=== PATIENT | male | born 1950 | race Asian ===

== ENCOUNTER 2018-08-12 00:01 | Inpatient (IN) | payer SELFPAY ==
[2018-08-12] MEDS ORDERED: NS 0.9% 1000 ML* 2,100 ML IV ONE (00:35)
[2018-08-12] MEDS ORDERED: Vancomycin(*) 1,000 MG in NS 0.9% 250 ML* 250 ML IVPB ONE (00:36)
[2018-08-12] MEDS ORDERED: Acetaminophen TAB* 325 MG PO ONE (00:36)
[2018-08-12] MEDS ORDERED: Piperacillin/Tazobac ADVAN(*) 3.375 GM in NS 0.9% 100 ML* 100 ML IVPB ONE (00:36)
--- NOTE | 2018-08-12 00:39 | ED ---
HPI Febrile Illness - HPI Summary HPI Summary: This patient is a 68 year old M presenting to [facility] accompanied by family with a chief complaint of fever that began earlier today. The patient rates the pain 3/10 in severity. Symptoms aggravated by nothing. Symptoms alleviated by nothing. Patient reports rash over eye (resolved), dysuria, chills, and urinary frequency. - History of Current Complaint Chief Complaint: EDFever Time Seen by Provider: 08/12/18 00:28 Hx Obtained From: Patient, Family/Field Handyman Onset/Duration: Started Hours Ago, Atraumatic, Still Present Timing: Constant Initial Severity: Mild Current Severity: Mild Pain Intensity: 3 Pain Scale Used: 0-10 Numeric Aggravating Factors: Nothing Alleviating Factors: Nothing Associated Signs and Symptoms: Other: - Positive rash over eye (resolved), dysuria, chills, and urinary frequency - Allergy/Home Medications Allergies/Adverse Reactions: Allergies Allergy/AdvReac Type Severity Reaction Status Date / Time No Known Allergies Allergy Verified 08/12/18 00:12 PMH/Surg Hx/FS Hx/Imm Hx Previously Healthy: No Endocrine/Hematology History: Reports: Hx Diabetes History: Reports: Other Problems/Disorders - Positive prostitis Infectious Disease History: No Infectious Disease History: Denies: Traveled Outside the [place] in Last 30 Days - Family History Known Family History: Positive: Other - Unknown because patient does not speak Cymro - Social History Occupation: Retired Lives: With Family Alcohol Use: Unknown Hx Substance Use: No Substance Use Type: Reports: None Hx Tobacco Use: No Smoking Status (MU): Unknown if Ever Smoked Review of Systems Positive: Fever, Chills Positive: dysuria, frequency Positive: Rash - Resolved All Other Systems Reviewed And Are Negative: Yes Physical Exam - Summary Physical Exam Summary: VITAL SIGNS: Reviewed. GENERAL: Patient is a well-developed and nourished male who is lying comfortable in the stretcher. Patient is not in any acute respiratory distress. Lethargic HEAD AND FACE: No signs of trauma. No ecchymosis, hematomas or skull depressions. No sinus tenderness. EYES: PERRLA, EOMI x 2, No injected conjunctiva, no nystagmus. EARS: Hearing grossly intact. Ear canals and tympanic membranes are within normal limits. MOUTH: Oropharynx within normal limits. NECK: Supple, trachea is midline, no adenopathy, no JVD, no carotid bruit, no c- spine tenderness, neck with full ROM. CHEST: Symmetric, no tenderness at palpation LUNGS: Clear to auscultation bilaterally. No wheezing or crackles. Decreased breath sounds bilaterally CVS: Regular rhythm, S1 and S2 present, no murmurs or gallops appreciated. Tachycardia ABDOMEN: Soft, non-tender. No signs of distention. No rebound no guarding, and no masses palpated. Bowel sounds are normal. GENITAL EXAM: uncircumcised EXTREMITIES: FROM in all major joints, no edema, no cyanosis or clubbing. NEURO: Alert and oriented x 3. No acute neurological deficits. Speech is normal and follows commands. SKIN: Dry and warm Triage Information Reviewed: Yes Vital Signs On Initial Exam: Initial Vitals Temp Pulse Resp BP Pulse Ox 101.1 F 131 15 94/50 95 08/12/18 00:08 08/12/18 00:08 08/12/18 00:08 08/12/18 00:08 08/12/18 00:08 Vital Signs Reviewed: Yes Procedures - Central Line Right Internal Jugular Central Line Lumen: triple Central Line Procedure: betadine prep - Chlorhexadine, sterile drapes applied, sterile dressing applied Central Line Position: internal jugular (R) Anesthesia: Lidocaine - 2% with epi Complications: none Central Line Post Position: sutured Diagnostics - Vital Signs Vital Signs Temp Pulse Resp BP Pulse Ox 08/12/18 00:08 101.1 F 131 15 94/50 95 - Laboratory Result Diagrams: 08/12/18 00:47 08/12/18 05:28 Lab Statement: Any lab studies that have been ordered have been reviewed, and results considered in the medical decision making process. - Radiology Chest XR Radiology Interpretation Completed By: ED Physician Summary of Radiographic Findings: Chest XR reveals, per ED physician, no acute process. Chest X-Ray Radiology Interpretation Completed By: ED Physician Summary of Radiographic Findings: Chest XR reveals, per ED physician, no pneumothorax, tip of central line is in the distal SVC - EKG 0157 Cardiac Rate: NL EKG Rhythm: Sinus Rhythm - [address] Segment: Non-Specific Summary of EKG Findings: An EKG taken at 0157 reveals normal sinus rhythm at 109 BPM nonspecific T wave changes in inferior leads. Re-Evaluation - Re-Evaluation First Eval Re-Evaluation Time: 02:14 Change: Unchanged Comment: Family member states the patient does not have any abdominal pain or back pain, so they are reluctant to have him get a CT. Course/Dx - Course Course Of Treatment: This patient is a 68 year old M presenting to [facility] accompanied by family with a chief complaint of fever that began earlier today. Physical Exam Findings: Lethargic, tachycardia, decreased breath sounds bilaterally, and uncircumcised. An EKG taken at 0157 reveals normal sinus rhythm at 109 BPM nonspecific T wave changes in inferior leads. Chest XR reveals , per ED physician, no acute process. Bloodwork and UA obtained. In the ED course the patient was given fluids, acetaminophen, Vancomycin, and Zosyn. Consult with Dr. Barfield (hospitalist) at 0219. She agrees to admit pt for further evaluation. The patient is agreeable with this plan. - Diagnoses Provider Diagnoses: UTI (urinary tract infection), Sepsis - Critical Care Time Critical Care Time: 30-74 min - 50 minutes Discharge - Sign-Out/Discharge Documenting (check all that apply): Patient Departure - Admit to [facility] - Discharge Plan Condition: Stable Disposition: ADMITTED TO [facility] - Billing Disposition and Condition Condition: STABLE Disposition: Admitted to [facility] - Attestation Statements Document Initiated by Tyleribsuzette: Yes Documenting Scribe: Jackeline Carcamo Provider For Whom Pradeep is Documenting (Include Credential): Dr. Leatha Rosas MD Scribe Attestation: IJackeline scribed for Dr. Leatha Rosas MD on 08/12/18 at 0611. Scribe Documentation Reviewed: Yes Provider Attestation: The documentation as recorded by the Jackeline guzman accurately reflects the service I personally performed and the decisions made by me, Dr. Leatha Rosas MD Status of Scribe Document: Viewed
[2018-08-12 01:08] LABS: Hematocrit 45 % (42-52); Hemoglobin 15.4 g/dl (14.0-18.0); INR 1.18 (0.77-1.02); Mean Corpuscular HGB Conc 34 g/dl (31-36); Mean Corpuscular Hemoglobin 32 pg (27-31); Mean Corpuscular Volume 95 fL (80-94); Mean Platelet Volume 8.1 fL (7.4-10.4); Platelet Count 118 10^3/ul (150-450); Red Blood Count 4.78 10^6/ul (4.00-5.40); Red Cell Distribution Width 12 % (10.5-15); White Blood Count 1.4 10^3/ul (3.5-10.8)
[2018-08-12 01:09] LABS: ABS Basophils 0 10^3/ul (0-0.2); ABS Eosinophils 0 10^3/ul (0-0.6); ABS Lymphocytes 0.7 10^3/ul (1.0-4.8); ABS Monocytes 0 10^3/ul (0-0.8); ABS Neutrophils 0.8 10^3/ul (1.5-7.7); ABS Nucleated RBC 0 10^3/ul; Nucleated Red Blood Cells % 0
[2018-08-12 01:16] LABS: EGFR Non-African American 43.2 (>60)
[2018-08-12 01:22] LABS: Eosinophil % 0.2 %; Lymphocyte % 45.2 %
[2018-08-12] MEDS ORDERED: NS 0.9% 1000 ML* 1,000 ML IV ONE (01:35)
[2018-08-12 01:38] LABS: Urine Appearance Cloudy; Urine Blood 2+ (Negative); Urine Color Yellow; Urine Ketones Negative (Negative); Urine Protein 2+(100 mg/dL) (Negative); Urine Red Blood Cell 2+(6-10/hpf) (Absent); Urine Specific Gravity 1.016 (1.010-1.030); Urine Urobilinogen Negative (Negative); Urine White Blood Cell 3+(>20/hpf) (Absent)
[2018-08-12] MEDS ORDERED: Dextrose 50% Syringe 50 ML* 25 GM/50 ML SYRINGE IV PUSH PRN (03:14)
[2018-08-12] MEDS ORDERED: Lidocaine 2% EPI 1:200000 MPF*10-20 ML VIAL ONE (03:32)
[2018-08-12] MEDS ORDERED: Norepinephrine 16MCG/ML IVPRE* 4,000 MCG/250 ML BAG IV SCH (04:00)
[2018-08-12] MEDS: Cefepime 1 GM in Dextrose(*) 1 GM/50 ML BAG IV SCH ×2 (04:21→16:24)
[2018-08-12] MEDS ORDERED: Norepinephrine VIAL* 4 MG in NS 0.9% 250 ML* 246 ML IV SCH (05:00)
[2018-08-12] MEDS: Heparin VIAL(*) 5000 UNITS/ML VIAL (FIVE THOUSAND) SUBCUT SCH ×3 (05:13→21:51)
[2018-08-12 05:56] LABS: EGFR Non-African American 53.5 (>60)
[2018-08-12] MEDS: Insulin LISPRO* 1 UNITS UNIT SUBCUT SCH ×5 (06:07→20:44)
--- NOTE | 2018-08-12 06:24 | HP ---
HISTORY AND PHYSICAL: DATE OF ADMISSION: 08/12/18 TIME OF EVALUATION: 3.00 a.m. PRIMARY CARE PROVIDER: None. CHIEF COMPLAINT: "He was out of it" as per khlwminc-zs-gwm. HISTORY OF PRESENT ILLNESS: Mr. Brice is a 68-year-old male with a past medical history of diabetes, who is visiting family from [place]. He is lethargic at the time of my evaluation and most of the history is obtained from his vhzioqqh-dg-yzb, who is at bedside and speaks Swedish. The wgcpuhaw-qo-ivd states that 3 days ago, the patient developed a rash around his right eye. She describes it as an elevated red rash that disappeared by itself. Around the same time, the patient started to complain of weakness, fatigue, feeling poorly, and had some urinary frequency. His was a physician in [place] and gave him amoxicillin yesterday, but he continued to have fever and feel poorly. His hhnmqryx-lb-eml, who is a nurse, states that yesterday the patient had a fever of 107 and he was very confused and tachypneic , reason why he was brought to the emergency room. He denies chest pain, palpitations, cough, abdominal pain, or any other complaints. As per aewmythc-za-jzp, he is feeling improved now and she says that he looks better, but is not back at his baseline. PAST MEDICAL HISTORY: Type 2 diabetes. He denies prior surgeries, history of nephrolithiasis, or prior episodes of urinary tract infection MEDICATIONS: Medication list is not available at this time. His daughter-in- law states that he takes metformin, glimepiride, and a third medication for his diabetes, but she does not have current dosages at this point. FAMILY HISTORY: Reviewed and noncontributory. SOCIAL HISTORY: There is no history of tobacco, alcohol, or drug use. Surrogate decision maker is his son, Riaz Brice. Phone number is [phone]. REVIEW OF SYSTEMS: I am unable to obtain from the patient at this time, but all the pertinent negative and positive findings that I could obtain through his gmyhnnzi-qi-yil are in the HPI. PHYSICAL EXAMINATION GENERAL: The patient is an elderly gentleman, lying in the ED stretcher, in no acute distress. VITAL SIGNS: Temperature 101.1, heart rate is 107, respiratory rate is 27, oxygen saturation is 95% on room air, blood pressure is 91/54. HEENT: Pupils are equal. Moist mucous membranes. CHEST: Breath sounds bilaterally with no added sounds. CVS: Normal S1, S2. Regular rate and rhythm. ABDOMEN: Soft, nontender, nondistended. Bowel sounds are present. EXTREMITIES: No edema. NEURO: The patient is lethargic, but arousable to touch. As per his daughter- in- law, his confusion has improved now and he is oriented x3. He follows commands and is able to move all 4 extremities. DIAGNOSTIC STUDIES/LAB DATA: The patient had a CBC that showed a WBC of 1.4 with a hemoglobin of 15.4, hematocrit of 45, platelets of 118 with 53% neutrophils, and ANC of 0.8. INR is 1.1. Chemistry showed a sodium of 137, potassium of 3.6, chloride of 103, bicarb 22, anion gap of 12, BUN of 16, creatinine of 1.6, glucose of 152, lactic acid of 4, calcium of 9.4. Total bilirubin is 1.7, AST is 22, ALT is 14, alk phos is 83. CPK is 132. Troponin is 0.01. CRP is 104.7. Urinalysis showed 2+ protein, 2+ blood, 3+ LE, 3+ wbc's , 2+ rbc's, 1+ bacteria, hyaline casts are present. Influenza was negative. Chest x-ray to my read shows no acute pulmonary disease. EKG done 08/12/18 at 1:57 a.m. shows sinus tachycardia at 109 beats per minute with no ST-T changes. No prior EKG to compare. IMPRESSION AND PLAN: Mr. Brice is a 68-year-old male with a past medical history of diabetes, visiting from [place], who presents to the emergency room with 2 days of dysuria, fatigue, fevers, found to have severe sepsis secondary to urinary tract infection. 1. Severe sepsis. The patient meets sepsis criteria with fever, tachycardia, tachypnea, leukopenia. He does have acute renal failure and encephalopathy and a lactic acid of 4. He also meets qSOFA criteria with respiratory rate greater than 22, altered mentation, and a systolic blood pressure less than 100. Source is the urinary tract infection. The patient would be admitted to the intensive care unit. We are going to continue aggressive fluid resuscitation and monitor his lactic acid. 2. Urinary tract infection. The patient will be started on cefepime to cover gram negatives. The blood cultures were sent and after discussing with his daughter-in- law, they are now agreeable with a CT of the abdomen and pelvis to rule out any urological obstruction that may be playing a role on his septic picture. 3. Leukopenia/thrombocytopenia. This appears to be acute and related to sepsis. As far as his bujqcair-ck-kvt knows, the patient has no history of leukopenia or thrombocytopenia. He will be placed on contact precautions. 4. Acute kidney injury, probably secondary to acute tubular necrosis in the setting of severe sepsis. The patent will receive aggressive IV hydration. He is going to have the CT without contrast to rule out obstruction and we will continue to monitor his renal function. 5. Type 2 diabetes. The patient's mcywylmr-ay-bjd does not remember all the medications he is taking. At this point, he is going to have fingersticks q.4 hours with lispro sliding scale and we will reconcile his medication list when his son gets here. His metformin use may also be contributing to his lactic acid elevation. 6. DVT prophylaxis. The patient has a score of 2 on the DVT Prophylaxis Risk Assessment Guide and he will be on subcutaneous heparin. 7. Code status is full. TIME SPENT: Approximately 55 minutes of critical care time was spent to complete this admission. [id number]/[facility] #: [id number] FARRUKH
[2018-08-12 07:08] LABS: ABS Basophils 0 10^3/ul (0-0.2); ABS Eosinophils 0 10^3/ul (0-0.6); ABS Lymphocytes 0.3 10^3/ul (1.0-4.8); ABS Monocytes 0.1 10^3/ul (0-0.8); ABS Neutrophils 5.6 10^3/ul (1.5-7.7); ABS Nucleated RBC 0 10^3/ul; Eosinophil % 0.1 %; Hematocrit 38 % (42-52); Lymphocyte % 4.3 %; Mean Corpuscular HGB Conc 34 g/dl (31-36); Mean Corpuscular Hemoglobin 33 pg (27-31); Mean Corpuscular Volume 95 fL (80-94); Mean Platelet Volume 8.3 fL (7.4-10.4); Nucleated Red Blood Cells % 0.1; Platelet Count 93 10^3/ul (150-450); Red Blood Count 3.96 10^6/ul (4.00-5.40); Red Cell Distribution Width 13 % (10.5-15); White Blood Count 5.9 10^3/ul (3.5-10.8)
[2018-08-12] MEDS: Norepinephrine VIAL* 4 MG in NS 0.9% 250 ML* 246 ML IV SCH ×2 (09:24→21:40)
[2018-08-12] MEDS: KCL 20 MEQ/100 ML IVPREMIX* 20 MEQ/100 ML BAG IV SCH ×2 (09:34→11:38)
[2018-08-12] MEDS: Docusate CAP* 100 MG PO SCH ×2 (10:10→20:51)
--- NOTE | 2018-08-12 12:16 | PN ---
Progress Note - Progress Note Date of Service: 08/12/18 - Progress note Note: Pt seen and examined at bedside. Plan of care discussed with bedside RN Pt admitted for sepsis sec to UTI. Pt is more alert this am. Remains afebrile o/n. Still requiring Levophed this am Active Medications Generic Name Dose Route Start Last Admin Trade Name Freq PRN Reason Stop Dose Admin Acetaminophen 650 mg 08/12/18 03:12 Tylenol Tab* PO Q6H PRN pain/fever Dextrose 12.5 gm 08/12/18 03:14 D50w Syringe 50 Ml* IV PUSH .FOR FS < 60 - SS PRN FS < 60 Docusate Sodium 100 mg 08/12/18 09:00 08/12/18 10:10 Colace Cap* PO Not Given BID MIMA Heparin Sodium (Porcine) 5,000 units 08/12/18 06:00 08/12/18 05:13 Heparin Vial(*) SUBCUT 5,000 units Q8HR MIMA Administration Cefepime HCl 1 gm in 50 mls @ 100 mls/hr 08/12/18 04:00 08/12/18 04:21 Maxipime 1 Gm In Dextrose Duplex (*) IV 100 mls/hr Q12H MIMA Administration Lactated Ringer's 1,000 mls @ 200 mls/hr 08/12/18 04:00 08/12/18 09:34 Lactated Ringers 1000 Ml Bag* IV 200 mls/hr PER RATE MIMA Administration Potassium Chloride 20 meq in 100 mls @ 50 mls/hr 08/12/18 09:00 08/12/18 11: 38 Potassium Chloride 20 Meq/100 Ml Ivpremix* IV 08/12/18 12:59 50 mls/hr Q2H MIMA Administration Norepinephrine Bitartrate 4 mg 250 mls @ 18.75 mls/hr 08/12/18 09:00 09:24 / Sodium Chloride IV 48.8 mls/hr Q13H MIMA Administration Protocol 5 MCG/MIN Insulin Human Lispro 0 units 08/12/18 06:00 08/12/18 10:32 Humalog* SUBCUT Not Given Q4HR MIMA Protocol Vital Signs Temp Pulse Resp BP Pulse Ox 97.8 F 70 15 116/69 97 08/12/18 07:00 08/12/18 11:30 08/12/18 11:30 08/12/18 11:30 08/12/18 11:30 O/E: Pt in NAD, drowsy but arousable HEENT: PERRLA, no JVD Lungs: clear to auscultation b/l CVS:S1, S2+, regular Abd: Soft, BS+ Ext: Normal ROM Neuro: Drowsy, wakes up to verbal stimuli, no focal deficits Skin: No rash Laboratory Results - last 24 hr 08/12/18 08/12/18 08/12/18 00:47 00:47 00:47 WBC 1.4 L RBC 4.78 Hgb 15.4 Hct 45 MCV 95 H MCH 32 H MCHC 34 RDW 12 Plt Count 118 L MPV 8.1 Neut % (Auto) 53.8 Lymph % (Auto) 45.2 Knott % (Auto) 0.5 Eos % (Auto) 0.2 Baso % (Auto) 0.3 Absolute Neuts (auto) 0.8 L* Absolute Lymphs (auto) 0.7 L Absolute Monos (auto) 0 Absolute Eos (auto) 0 Absolute Basos (auto) 0 Absolute Nucleated RBC 0 Nucleated RBC % 0 INR (Anticoag Therapy) 1.18 H APTT 28.9 Sodium 137 Potassium 3.6 Chloride 103 Carbon Dioxide 22 Anion Gap 12 H BUN 16 Creatinine 1.60 H Est GFR ( Amer) 52.3 Est GFR (Non-Af Amer) 43.2 BUN/Creatinine Ratio 10.0 Glucose 152 H POC Glucose (mg/dL) Lactic Acid Calcium 9.4 Magnesium Total Bilirubin 1.70 H AST 22 ALT 14 Alkaline Phosphatase 83 Total Creatine Kinase 132 Troponin I 0.01 C-Reactive Protein 104.76 H Total Protein 7.4 Albumin 4.1 Globulin 3.3 Albumin/Globulin Ratio 1.2 Urine Color Urine Appearance Urine pH Ur Specific [place] Urine Protein Urine Ketones Urine Blood Urine Nitrate Urine Bilirubin Urine Urobilinogen Ur Leukocyte Esterase Urine WBC (Auto) Urine RBC (Auto) Ur Squamous Epith Cells Urine Bacteria Hyaline Casts Urine Glucose Influenza A (Rapid) Influenza B (Rapid) 08/12/18 08/12/18 08/12/18 00:47 01:20 01:48 WBC RBC Hgb Hct MCV MCH MCHC RDW Plt Count MPV Neut % (Auto) Lymph % (Auto) Knott % (Auto) Eos % (Auto) Baso % (Auto) Absolute Neuts (auto) Absolute Lymphs (auto) Absolute Monos (auto) Absolute Eos (auto) Absolute Basos (auto) Absolute Nucleated RBC Nucleated RBC % INR (Anticoag Therapy) APTT Sodium Potassium Chloride Carbon Dioxide Anion Gap BUN Creatinine Est GFR ( Amer) Est GFR (Non-Af Amer) BUN/Creatinine Ratio Glucose POC Glucose (mg/dL) Lactic Acid 4.0 H* Calcium Magnesium Total Bilirubin AST ALT Alkaline Phosphatase Total Creatine Kinase Troponin I C-Reactive Protein Total Protein Albumin Globulin Albumin/Globulin Ratio Urine Color Yellow Urine Appearance Cloudy Urine pH 5.0 Ur Specific [place] 1.016 Urine Protein 2+(100 mg/dl) A Urine Ketones Negative Urine Blood 2+ A Urine Nitrate Negative Urine Bilirubin Negative Urine Urobilinogen Negative Ur Leukocyte Esterase 3+ A Urine WBC (Auto) 3+(>20/hpf) A Urine RBC (Auto) 2+(6-10/hpf) A Ur Squamous Epith Cells Present A Urine Bacteria 1+ A Hyaline Casts Present A Urine Glucose Negative Influenza A (Rapid) Negative Influenza B (Rapid) Negative 08/12/18 08/12/18 08/12/18 05:28 05:28 05:28 WBC 5.9 RBC 3.96 L Hgb 13.0 L Hct 38 L MCV 95 H MCH 33 H MCHC 34 RDW 13 Plt Count 93 L MPV 8.3 Neut % (Auto) 93.8 Lymph % (Auto) 4.3 Knott % (Auto) 1.7 Eos % (Auto) 0.1 Baso % (Auto) 0.1 Absolute Neuts (auto) 5.6 Absolute Lymphs (auto) 0.3 L Absolute Monos (auto) 0.1 Absolute Eos (auto) 0 Absolute Basos (auto) 0 Absolute Nucleated RBC 0 Nucleated RBC % 0.1 INR (Anticoag Therapy) APTT Sodium 140 Potassium 3.0 L Chloride 114 H Carbon Dioxide 18 L Anion Gap 8 BUN 18 Creatinine 1.33 H Est GFR ( Amer) 64.7 Est GFR (Non-Af Amer) 53.5 BUN/Creatinine Ratio 13.5 Glucose 117 H POC Glucose (mg/dL) Lactic Acid 1.9 Calcium 7.5 L Magnesium 1.7 L Total Bilirubin 1.00 AST 28 ALT 16 Alkaline Phosphatase 56 Total Creatine Kinase Troponin I C-Reactive Protein Total Protein 5.2 L Albumin 2.9 L Globulin 2.3 Albumin/Globulin Ratio 1.3 Urine Color Urine Appearance Urine pH Ur Specific [place] Urine Protein Urine Ketones Urine Blood Urine Nitrate Urine Bilirubin Urine Urobilinogen Ur Leukocyte Esterase Urine WBC (Auto) Urine RBC (Auto) Ur Squamous Epith Cells Urine Bacteria Hyaline Casts Urine Glucose Influenza A (Rapid) Influenza B (Rapid) 08/12/18 10:10 WBC RBC Hgb Hct MCV MCH MCHC RDW Plt Count MPV Neut % (Auto) Lymph % (Auto) Knott % (Auto) Eos % (Auto) Baso % (Auto) Absolute Neuts (auto) Absolute Lymphs (auto) Absolute Monos (auto) Absolute Eos (auto) Absolute Basos (auto) Absolute Nucleated RBC Nucleated RBC % INR (Anticoag Therapy) APTT Sodium Potassium Chloride Carbon Dioxide Anion Gap BUN Creatinine Est GFR ( Amer) Est GFR (Non-Af Amer) BUN/Creatinine Ratio Glucose POC Glucose (mg/dL) 127 H Lactic Acid Calcium Magnesium Total Bilirubin AST ALT Alkaline Phosphatase Total Creatine Kinase Troponin I C-Reactive Protein Total Protein Albumin Globulin Albumin/Globulin Ratio Urine Color Urine Appearance Urine pH Ur Specific [place] Urine Protein Urine Ketones Urine Blood Urine Nitrate Urine Bilirubin Urine Urobilinogen Ur Leukocyte Esterase Urine WBC (Auto) Urine RBC (Auto) Ur Squamous Epith Cells Urine Bacteria Hyaline Casts Urine Glucose Influenza A (Rapid) Influenza B (Rapid) Imaging: CT abdomen with no obvious abnormalities, no hydronephrosis. Evidence of stool in intestine CXR: Basal atelectasis A/P: 68 y o georgian m with h/o DM, a/w fever, AMS being treated for sepsis sec to UTI 1. Septic shock sec to UTI 2.AMS sec to septic encephalopathy 3. DM- poorly controlled sec to sepsis 4. Electrolyte abnormalities with hypokalemia, corrected 5.Renal failure sec to sepsis, hypotension 6. Gram negative bacteremia 1. Neuro: Pt more alert today. AMS sec to sepsis. Aspiration precautions 2. CVS: Septic shock sec to UTI and bacteremia with gram negatives, improving. Titrate LEvophed as tolerated. c/w IVF @ 200cc/hr, not tachycardic 3. ID: Urosepsis, improving. Lactate normalized. On Cefepime. Bl cx positive for gram negative rods, identification and susceptibilities pending. Urine cx pending 4. Renal: UO good, will d/c obando and place condom catheter. Hypokalemia, hypomagnesemia- Repleted. Uncomplicated UTI 5. GI: Started carbohydrate diet. Able to tolerate 6. Endo: DM- Bl sugars slightly elevated, being covered by sliding scale insulin. 7. Haem: Leucopenia on admission sec to sepsis, improving. 8. Muculoskletal: NO issues 9. Psychosocial: Family at bedside. Pts son, lakgnwmy-wn-zzg, pts were updated of plan of care. Pt visiting from [place], doesnot have insurance. personal care worker consulted DVT px: Heparin Sq Code status: Full code Critical care time 30 min
[2018-08-12] MEDS ORDERED: Magnesium Oxide TAB* 400 MG PO ONE (12:35)
[2018-08-12] MEDS: Acetaminophen TAB* 325 MG PO PRN (16:34)
[2018-08-13] MEDS: Cefepime 1 GM in Dextrose(*) 1 GM/50 ML BAG IV SCH ×2 (03:49→17:07)
[2018-08-13 05:32] LABS: Hematocrit 37 % (42-52); Hemoglobin 12.6 g/dl (14.0-18.0); Mean Corpuscular HGB Conc 34 g/dl (31-36); Mean Corpuscular Hemoglobin 32 pg (27-31); Mean Corpuscular Volume 95 fL (80-94); Platelet Count 69 10^3/ul (150-450); Red Blood Count 3.89 10^6/ul (4.00-5.40); Red Cell Distribution Width 13 % (10.5-15); White Blood Count 13.2 10^3/ul (3.5-10.8)
[2018-08-13 05:44] LABS: EGFR Non-African American 74.3 (>60)
[2018-08-13] MEDS: Heparin VIAL(*) 5000 UNITS/ML VIAL (FIVE THOUSAND) SUBCUT SCH (06:40)
[2018-08-13] MEDS: Insulin LISPRO* 1 UNITS UNIT SUBCUT SCH ×4 (07:47→21:27)
[2018-08-13 08:18] LABS: ABS Basophils 0 10^3/ul (0-0.2); ABS Eosinophils 0 10^3/ul (0-0.6); ABS Lymphocytes 0.8 10^3/ul (1.0-4.8); ABS Monocytes 0.6 10^3/ul (0-0.8); ABS Neutrophils 11.7 10^3/ul (1.5-7.7); ABS Nucleated RBC 0 10^3/ul; Eosinophil % 0.1 %; Lymphocyte % 6.3 %; Nucleated Red Blood Cells % 0.1
[2018-08-13 08:21] LABS: Monocytes % 2 %
[2018-08-13 08:26] LABS: ABS Neutrophils 13.2 10^3/ul (1.5-7.7)
[2018-08-13] MEDS: Docusate CAP* 100 MG PO SCH ×3 (08:40→21:30)
--- NOTE | 2018-08-13 12:34 | PN ---
Progress Note - Progress Note Date of Service: 08/13/18 - Progress note/Transfer note Note: Pt seen and examined multiple times throughout this am. Pt is more alert. he is german speaking and his son at bedside translates. No acute events overnight. Has required Levophed at 4mcg, has been off since 10am. Active Medications Generic Name Dose Route Start Last Admin Trade Name Freq PRN Reason Stop Dose Admin Acetaminophen 650 mg 08/12/18 03:12 08/12/18 16:34 Tylenol Tab* PO 650 mg Q6H PRN Administration pain/fever Dextrose 12.5 gm 08/12/18 03:14 D50w Syringe 50 Ml* IV PUSH .FOR FS < 60 - SS PRN FS < 60 Docusate Sodium 100 mg 08/12/18 09:00 08/13/18 08:40 Colace Cap* PO Not Given BID MIMA Cefepime HCl 1 gm in 50 mls @ 100 mls/hr 08/12/18 04:00 08/13/18 03:49 Maxipime 1 Gm In Dextrose Duplex (*) IV 100 mls/hr Q12H MIMA Administration Norepinephrine Bitartrate 4 mg 250 mls @ 18.75 mls/hr 08/12/18 09:00 21:40 / Sodium Chloride IV 11.3 mls/hr Q13H MIMA Administration Protocol 5 MCG/MIN Lactated Ringer's 1,000 mls @ 75 mls/hr 08/12/18 13:57 08/13/18 03:49 Lactated Ringers 1000 Ml Bag* IV 75 mls/hr PER RATE MIMA Administration Insulin Human Lispro 0 units 08/12/18 13:30 08/13/18 07:47 Humalog* SUBCUT Not Given FS ACHS ICU MIMA Protocol Vital Signs Temp Pulse Resp BP Pulse Ox 98.2 F 98 14 103/58 96 08/13/18 11:27 08/13/18 10:15 08/13/18 10:15 08/13/18 10:15 08/13/18 10:15 O/E: Pt in NAD HEENT: PERRLA, no JVD Lungs: Good a/e b/l CVS: S1, S2+, regular Abd: Soft, BS+ Ext; No edema Neuro: Alert, awake, no focal deficits Skin: No rash Laboratory Results - last 24 hr 08/12/18 08/12/18 08/12/18 00:47 12:10 18:30 WBC RBC Hgb Hct MCV MCH MCHC RDW Plt Count MPV Neut % (Auto) Lymph % (Auto) Pepin % (Auto) Eos % (Auto) Baso % (Auto) Absolute Neuts (auto) Absolute Lymphs (auto) Absolute Monos (auto) Absolute Eos (auto) Absolute Basos (auto) Absolute Nucleated RBC Immature Gran % Neutrophils % Band Neutrophils % Lymphocytes % Monocytes % Metamyelocytes % Myelocytes % Nucleated RBC % Abs Neuts (Manual) Abs Lymphs (Manual) Abs Monocytes (Manual) Normal RBC Morphology Hem Pathologist Commnt Sodium Potassium Chloride Carbon Dioxide Anion Gap BUN Creatinine Est GFR ( Amer) Est GFR (Non-Af Amer) BUN/Creatinine Ratio Glucose POC Glucose (mg/dL) 185 H 174 H Calcium Total Bilirubin AST ALT Alkaline Phosphatase Total Protein Albumin Globulin Albumin/Globulin Ratio 08/12/18 08/13/18 08/13/18 20:34 05:15 05:15 WBC 13.2 H RBC 3.89 L Hgb 12.6 L Hct 37 L MCV 95 H MCH 32 H MCHC 34 RDW 13 Plt Count 69 L MPV 8.0 Neut % (Auto) 88.7 Lymph % (Auto) 6.3 Pepin % (Auto) 4.8 Eos % (Auto) 0.1 Baso % (Auto) 0.1 Absolute Neuts (auto) 11.7 H Absolute Lymphs (auto) 0.8 L Absolute Monos (auto) 0.6 Absolute Eos (auto) 0 Absolute Basos (auto) 0 Absolute Nucleated RBC 0 Immature Gran % 19 H Neutrophils % 73 Band Neutrophils % 16 H Lymphocytes % 6 Monocytes % 2 Metamyelocytes % 2 Myelocytes % 1 Nucleated RBC % 0.1 Abs Neuts (Manual) 13.2 H Abs Lymphs (Manual) 0.8 L Abs Monocytes (Manual) 0.3 Normal RBC Morphology Normal Hem Pathologist Commnt Sodium 139 Potassium 3.5 Chloride 111 Carbon Dioxide 20 L Anion Gap 8 BUN 12 Creatinine 1.00 Est GFR ( Amer) 89.9 Est GFR (Non-Af Amer) 74.3 BUN/Creatinine Ratio 12.0 Glucose 105 H POC Glucose (mg/dL) 194 H Calcium 7.7 L Total Bilirubin 0.80 AST 29 ALT 18 Alkaline Phosphatase 48 Total Protein 5.2 L Albumin 2.7 L Globulin 2.5 Albumin/Globulin Ratio 1.1 08/13/18 07:40 WBC RBC Hgb Hct MCV MCH MCHC RDW Plt Count MPV Neut % (Auto) Lymph % (Auto) Pepin % (Auto) Eos % (Auto) Baso % (Auto) Absolute Neuts (auto) Absolute Lymphs (auto) Absolute Monos (auto) Absolute Eos (auto) Absolute Basos (auto) Absolute Nucleated RBC Immature Gran % Neutrophils % Band Neutrophils % Lymphocytes % Monocytes % Metamyelocytes % Myelocytes % Nucleated RBC % Abs Neuts (Manual) Abs Lymphs (Manual) Abs Monocytes (Manual) Normal RBC Morphology Hem Pathologist Commnt Sodium Potassium Chloride Carbon Dioxide Anion Gap BUN Creatinine Est GFR ( Amer) Est GFR (Non-Af Amer) BUN/Creatinine Ratio Glucose POC Glucose (mg/dL) 105 H Calcium Total Bilirubin AST ALT Alkaline Phosphatase Total Protein Albumin Globulin Albumin/Globulin Ratio Imaging: CT abdomen with no obvious abnormalities, no hydronephrosis. Evidence of stool in intestine CXR: Basal atelectasis A/P: 68 y o german m with h/o DM, a/w fever, AMS being treated for sepsis sec to UTI and E.Coli bactiremia Septic shock sec to E.Coli bacteremia and UTI, resolved Pt has been off Levophed since this morning Susceptibilities pending, c/w Cefepime Renal output good, obando was d/elder Able to tolerate feeds H/o DM- c/w sliding scale insulin coverage Leucopenia on admission, leucocytosis now Thrombocytopenia- Likely sec to sepsis, no active bleeding, will d/c Heparin sq Will transfer to regular medical floor Pt`s son and [id number] had many questions that were addressed Pt visiting from [place], doesnot have insurance. freezing room worker consulted DVT px: SCD`s Pt to ambulate as tolerated D/w Dr Quevedo who would be taking over patient`s care Code status: Full code
[2018-08-13] MEDS: Norepinephrine VIAL* 4 MG in NS 0.9% 250 ML* 246 ML IV SCH (12:59)
[2018-08-13] MEDS: Acetaminophen TAB* 325 MG PO PRN (18:13)
[2018-08-14] MEDS: Cefepime 1 GM in Dextrose(*) 1 GM/50 ML BAG IV SCH ×2 (04:58→17:47)
[2018-08-14 10:23] LABS: ABS Basophils 0 10^3/ul (0-0.2); ABS Eosinophils 0 10^3/ul (0-0.6); ABS Lymphocytes 0.8 10^3/ul (1.0-4.8); ABS Monocytes 0.4 10^3/ul (0-0.8); ABS Neutrophils 8.3 10^3/ul (1.5-7.7); ABS Nucleated RBC 0 10^3/ul; Eosinophil % 0.4 %; Hematocrit 37 % (42-52); Lymphocyte % 8.7 %; Mean Corpuscular HGB Conc 35 g/dl (31-36); Mean Corpuscular Hemoglobin 33 pg (27-31); Mean Corpuscular Volume 94 fL (80-94); Mean Platelet Volume 8.9 fL (7.4-10.4); Nucleated Red Blood Cells % 0; Platelet Count 73 10^3/ul (150-450); Red Blood Count 3.98 10^6/ul (4.00-5.40); Red Cell Distribution Width 13 % (10.5-15); White Blood Count 9.6 10^3/ul (3.5-10.8)
[2018-08-14] MEDS: Insulin LISPRO* 1 UNITS UNIT SUBCUT SCH ×4 (10:27→20:48)
[2018-08-14] MEDS: Docusate CAP* 100 MG PO SCH ×2 (10:28→20:48)
[2018-08-14 10:34] LABS: EGFR Non-African American 75.2 (>60)
--- NOTE | 2018-08-14 13:50 | PN ---
Subjective Date of Service: 08/14/18 Interval History: Patient does not speak any Cymro - son at bedside to interpret. Pt denies any pain today. He reports he feels better today. Denies fever/chills. Reports tolerating PO Objective Active Medications: Acetaminophen (Tylenol Tab*) 650 mg PO Q6H PRN PRN Reason: pain/fever Last Admin: 08/13/18 18:13 Dose: 650 mg Dextrose (D50w Syringe 50 Ml*) 12.5 gm IV PUSH .FOR FS < 60 - SS PRN PRN Reason: FS < 60 Docusate Sodium (Colace Cap*) 100 mg PO BID [facility] Last Admin: 08/14/18 10:28 Dose: Not Given Cefepime HCl (Maxipime 1 Gm In Dextrose Duplex (*)) 1 gm in 50 mls @ 100 mls/ hr IV Q12H [facility] Last Admin: 08/14/18 04:58 Dose: 100 mls/hr Lactated Ringer's (Lactated Ringers 1000 Ml Bag*) 1,000 mls @ 75 mls/hr IV PER RATE [facility] Last Admin: 08/14/18 06:39 Dose: 75 mls/hr Insulin Human Lispro (Humalog*) 0 units SUBCUT FS ACHS ICU [facility]; Protocol Last Admin: 08/14/18 12:55 Dose: 2 unit Vital Signs - 8 hr 08/14/18 08/14/18 08/14/18 07:24 08:00 11:29 Temperature 98.4 F 97.4 F Pulse Rate 78 89 Respiratory 16 16 16 Rate Blood Pressure 115/77 119/73 (mmHg) O2 Sat by Pulse 97 97 98 Oximetry Oxygen Devices in Use Now: None Appearance: 68 yo male A+Ox3 in AND Eyes: No Scleral Icterus, PERRLA Ears/Nose/Mouth/Throat: NL Teeth, Lips, Gums, Mucous Membranes Moist Respiratory: Symmetrical Chest Expansion and Respiratory Effort, Clear to Auscultation Cardiovascular: NL Sounds; No Murmurs; No JVD, RRR, No Edema Abdominal: NL Sounds; No Tenderness; No Distention Extremities: No Edema, No Clubbing, Cyanosis Skin: No Rash or Ulcers, No Nodules or Sclerosis Neurological: Alert and Oriented x 3, NL Sensation, NL Gait, NL Muscle Strength and Tone Lines/Tubes/Other Access: Clean, Dry and Intact Peripheral IV Nutrition: Taking PO's Result Diagrams: 08/14/18 10:00 08/14/18 10:00 Microbiology and Other Data: Microbiology 08/12/18 01:20 Urine Culture - Final Urine Escherichia Coli 08/12/18 00:46 Aerobic Blood Culture - Final Blood Venous Escherichia Coli Anaerobic Blood Culture - Final Escherichia Coli 08/12/18 00:46 Aerobic Blood Culture - Final Blood Venous Escherichia Coli Anaerobic Blood Culture - Final Escherichia Coli 08/12/18 05:00 Nasal Screen MRSA (PCR) - Final Nasal Mrsa Not Detected 08/12/18 01:36 Influenza Types A,B Antigen - Final Nasal Specimen received for Influenza A/B Molecular testing Assess/Plan/Problems-Billing Assessment: 68 yo male visiting from [place] with a PMH of DM2 who presented on with septic shock secondary to ecoli bacteremia and UTI requiring levophed - > transferred out of ICU 08/13 - Patient Problems (1) Septic shock Comment: - resolved. require vasopressor. - source: ecoli bacteremia -> UTI - CT abdomen unremarkable - Repeat BC today - Remove IJ central line - Continue Cefepime. - DC IVFs. U/O wnls - ID consult placed - pt recommended to follow up with a urologist when he returns home. Possible BPH? (2) Acute renal failure Comment: - in the setting of septic shock - now resolved (3) Diabetes Comment: - Controlled - hold home medications. - FSBG Ac with lispro SS (4) Thrombocytopenia Comment: - in the setting of acute illness. Stable. (5) DVT prophylaxis Comment: SCDs Status and Disposition: inpatient. Possible DC home tomorrow; await repeat BC. Pt does not have insurance. social work following. Son and daughter in law live locally
[2018-08-15] MEDS: Cefepime 1 GM in Dextrose(*) 1 GM/50 ML BAG IV SCH (04:03)
[2018-08-15 07:01] LABS: Hematocrit 39 % (42-52); Hemoglobin 13.8 g/dl (14.0-18.0); Mean Corpuscular HGB Conc 35 g/dl (31-36); Mean Corpuscular Hemoglobin 33 pg (27-31); Mean Corpuscular Volume 93 fL (80-94); Red Blood Count 4.22 10^6/ul (4.00-5.40); Red Cell Distribution Width 13 % (10.5-15)
[2018-08-15 07:32] LABS: ABS Basophils 0 10^3/ul (0-0.2); ABS Eosinophils 0.1 10^3/ul (0-0.6); ABS Monocytes 0.4 10^3/ul (0-0.8); ABS Neutrophils 4.5 10^3/ul (1.5-7.7); ABS Nucleated RBC 0 10^3/ul; Eosinophil % 1.1 %; Lymphocyte % 16.4 %; Mean Platelet Volume 8.5 fL (7.4-10.4); Nucleated Red Blood Cells % 0; Platelet Count 80 10^3/ul (150-450)
[2018-08-15 08:26] LABS: EGFR Non-African American 77.9 (>60)
[2018-08-15] MEDS: Docusate CAP* 100 MG PO SCH (10:27)
[2018-08-15] MEDS: Insulin LISPRO* 1 UNITS UNIT SUBCUT SCH ×2 (10:30→12:55)
--- NOTE | 2018-08-15 12:44 | CONS ---
DATE OF CONSULTATION: 08/15/2018. REQUESTING PROVIDER: Tamara Jasso NP. CONSULTING SERVICE: Infectious Disease. REASON FOR CONSULTATION: E. coli, sepsis. IMPRESSION: 1. E. coli septic shock, resolved; primary source is urinary tract, including prostate. The E. coli is sensitive to all other than Tetracycline and Ampicillin. 2. Possible benign prostatic hypertrophy. 3. Type 2 diabetes. RECOMMENDATIONS: Given negative CT without stone disease, this is acute bacterial prostatitis which we will treat, now to finish the treatment of oral antibiotics in the form of Cephalexin 500 mg by mouth t.i.d. for ten more days. HISTORY OF PRESENT ILLNESS: This is a 68-year-old man with diabetes visiting [place] who developed urinary frequency and then a fever, not acting himself, malaise, and decreased energy. He took Amoxicillin at home. His daughter-in- law who is a nurse brought him into the hospital. He had a fever of 10__7 at home. After a few days of antibiotics, they say he is back to his usual self, energy is good, and no urinary symptoms, flank pain or dysuria. CT of the abdomen and pelvis was unrevealing. The patient does not speak British, so the history was obtained from review of the medical records and discussion with the patient's who is a physician and with translation from the patient's [id number]. PAST MEDICAL HISTORY: Type 2 diabetes. MEDICATIONS: Tylenol, Cefepime 1 gm every 12 hours. ALLERGIES: No known drug allergies. FAMILY HISTORY: No recurrent infections. SOCIAL HISTORY: He lives in [place], vising [place]. No sick contacts. REVIEW OF SYSTEMS: All negative except as noted above in the history of present illness. PHYSICAL EXAM: General: He is awake and not in distress. Vital Signs: Temperature 36.5, heart rate 80, respiratory rate 18, blood pressure 104/70. Neurologic: He is oriented times three, follows all commands. HEENT: There is on conjunctival hemorrhage. Oral pharynx without lesions. Neck: Supple without mass. Heart: Regular rate and rhythm without murmurs, rubs, or gallops. Lungs: Clear to auscultation bilaterally. Abdomen: Soft, nontender, nondistended. There is no flank tenderness to palpation. Skin: There is no rash or splinter hemorrhages. LAB DATA: Creatinine 0.9, white blood cell count 6, hemoglobin 13, platelets 80 ,000. Please see impressions and recommendations as outlined above. Thank you for asking me to see Mr. Brice in consultation. [id number]/[facility] #: [id number] [facility]
[2018-08-15 15:05] VITALS: BP 108/67
--- NOTE | 2018-08-16 04:03 | DS ---
CC: Dr. Anguiano; Dr. Leatha Rosas; Dr. Manuel.* DISCHARGE SUMMARY: DATE OF ADMISSION: DATE OF DISCHARGE: 08/15/18 DISCHARGE DIAGNOSES: 1. Urinary tract infection with sepsis versus acute bacterial prostatitis with sepsis, sepsis resolved. 2. Leukopenia and thrombocytopenia; leukopenia resolved, thrombocytopenia improved likely secondary to above. 3. Acute kidney injury due to above, resolved. DISCHARGE MEDICATIONS: As follows: 1. Tylenol 650 mg p.o. q.6 p.r.n. 2. Acarbose 50 mg p.o. t.i.d. 3. Cephalexin 500 mg p.o. t.i.d. for 14 days. 4. Glimepiride 1 mg p.o. b.i.d. 5. Floranex tablet 2 tabs p.o. daily for 20 days. 6. Metformin 250 mg p.o. t.i.d. HISTORY OF PRESENT ILLNESS/HOSPITAL COURSE: The patient is a 68-year-old Kittitian national with a history of diabetes visiting family from [place] who was admitted for lethargy and fever as high as 107 degrees and was admitted with sepsis thought to be due to either UTI and/or prostatitis. Patient had been placed on cefepime and blood cultures are so far negative for 1 day. However, urine culture is growing E. coli that is sensitive to even a first-generation cephalosporin. Hence, his antibiotic regimen will be narrowed for 14 more days of Keflex p.o. t.i.d. Patient has been seen and evaluated by Dr. Manuel. The patient had been advised to follow up and recall his PCP within 3 days post discharge. However, given that he is self-pay and normal lives in [place] and is here in the [facility] only visiting, he was advised that if he does not have a PCP, to call [facility] for followup and to call his PCP and /or [facility] regarding the result of his blood work that will be re- drawn 3 days post his discharge and to ask for results of heparin PF4 antibody test as well. He was advised that if his symptoms resume or develop new ones or feel unwell for any reason, he was advised to call his PCP first and if his PCP cannot entertain him due to scheduling issues alone, to call [facility] if the issue is nonemergent. He was advised to call my office regarding any questions or concerns or further clarifications regarding his discharge plan and prescription and to take his medications as prescribed. TIME SPENT: The total time spent evaluating patient, reviewing pertinent data, and appropriate documentation is 50 minutes. [id number]/[facility] #: [id number] MTDD
== END 2018-08-15 15:50 | disposition home or self-care (01) | DRG 871 ==
LOC: ED 00:01 → ICU 03:48 → MED 08-13 16:29
PROVIDERS: ADMIT Internal Medicine; ATTEND Student in an Organized Health Care Education/Training Program
PROC: 02HV33Z Insertion of Infusion Device into Superior Vena Cava, Percutaneous Approach (ICD-10-PCS; principal; 2018-08-12)
PROC: 3E033XZ Introduction of Vasopressor into Peripheral Vein, Percutaneous Approach (ICD-10-PCS; 2018-08-12)
DX: A41.51 Sepsis due to Escherichia coli [E. coli] (principal); R65.21 Severe sepsis with septic shock; G93.41 Metabolic encephalopathy; N39.0 Urinary tract infection, site not specified; N17.9 Acute kidney failure, unspecified; N41.0 Acute prostatitis; D69.6 Thrombocytopenia, unspecified; B96.89 Other specified bacterial agents as the cause of diseases classified elsewhere; E11.65 Type 2 diabetes mellitus with hyperglycemia; E87.6 Hypokalemia; E83.42 Hypomagnesemia; Z79.84 Long term (current) use of oral hypoglycemic drugs; D72.819 Decreased white blood cell count, unspecified
CPT/HCPCS: 36415; 71045; 74176; 80048; 80053; 81003; 81015; 82550; 83605; 83735; 84484; 85025; 85060; 85610; 85730; 86022; 86140; 87040; 87077; 87086; 87186; 87205; 87641; 93005; 99285; A9270-GY; J0692; J1644; J2543; J3370; J3480

== ENCOUNTER 2018-10-07 17:21 | Emergency (ER) | payer SELFPAY ==
[2018-10-07 17:42] VITALS: BP 138/69
--- NOTE | 2018-10-07 17:48 | UC ---
General HPI - HPI Summary HPI Summary: Pleasant 68 yo gentleman presents with son, c/o feeling bad since yesterday. + fever, cough (min prod). + watery eyes. + h/a. No abd issues, no n/v/d. + scratchy throat. Urinating ok. Blood sugars have been ok, but doesn't check frequently. Mr. Brice was admitted to the hospital early Aug 2018 d/t urosepsis and MAG. Does not yet have a local doctor, mostly because he has been visiting from [place], and hopes to return soon. + sick contact influenza A. - History of Current Complaint Chief Complaint: UCGeneralIllness Stated Complaint: FEVER Time Seen by Provider: 10/07/18 17:47 Hx Obtained From: Patient, Family/Airline Dispatcher Pain Intensity: 3 - Allergy/Home Medications Allergies/Adverse Reactions: Allergies Allergy/AdvReac Type Severity Reaction Status Date / Time No Known Allergies Allergy Verified 10/07/18 17:42 Home Medications: Home Medications Tamsulosin CAP* [Flomax CAP*] 0.4 mg PO DAILY 10/07/18 [History Confirmed ] PMH/Surg Hx/FS Hx/Imm Hx Previously Healthy: No - see hpi - Surgical History Surgical History: None - Family History Known Family History: Positive: Other - Unknown because patient does not speak New Zealander - Social History Alcohol Use: None Substance Use Type: None Smoking Status (MU): Unknown if Ever Smoked - Immunization History Most Recent Influenza Vaccination: unknown Most Recent Pneumonia Vaccination: None Review of Systems All Other Systems Reviewed And Are Negative: Yes Constitutional: Positive: Fever, Fatigue Skin: Positive: Negative Eyes: Positive: Drainage ENT: Positive: Sore Throat Respiratory: Positive: Cough Cardiovascular: Positive: Negative Gastrointestinal: Positive: Negative Genitourinary: Positive: Negative Motor: Positive: Negative Neurovascular: Positive: Negative Musculoskeletal: Positive: Negative Neurological: Positive: Headache Psychological: Positive: Negative Is Patient Immunocompromised?: No Physical Exam Triage Information Reviewed: Yes Appearance: Thin, Other: - Sitting up, looks tired, but nontoxic / nad. Vital Signs: Initial Vital Signs Temp 98.3 F 10/07/18 17:36 Pulse 103 10/07/18 17:36 Resp 18 10/07/18 17:36 BP 138/69 10/07/18 17:36 Pulse Ox 98 10/07/18 17:36 Vital Signs Reviewed: Yes Eye Exam: Other - perrla, grossly tracks well. Eyes are both watery. ENT: Positive: Pharyngeal erythema - red post pharynx, no sores / exudate. uvula midline. No stridor., TM dull Neck exam: Normal Neck: Positive: Supple - supple for age no meningismus Respiratory Exam: Other - + rhonchorus cough, no wheezing noted at phys exam Respiratory: Positive: Chest non-tender, Lungs clear, Normal breath sounds, No respiratory distress, No accessory muscle use Cardiovascular Exam: Normal Cardiovascular: Positive: RRR, No Murmur - no murmur noted hr correlates with L radial pulse, Pulses Normal, Brisk Capillary Refill Abdominal Exam: Normal Abdomen Description: Positive: Nontender Bowel Sounds: Positive: Present Musculoskeletal Exam: Normal - moves x 4 ext's, sitting up Neurological Exam: Normal - grossly nonfocal, detailed neuro not done Psychological Exam: Normal - conversing easily and appropriately via son who translates Korean Skin Exam: Normal - no visible or reported rash, nondiaphoretic Course/Dx - Course Course Of Treatment: Influenza a +. Reviewed D/c summary and blood work ( including kidney fxn) from Aug 2018. Pt's family son expresses concern about immune system in the setting of current influenza dx. Will check bmp, cbc. Encourage fluids. Questions as posed answered to the best of my ability. - Diagnoses Provider Diagnosis: Influenza A Discharge - Sign-Out/Discharge Documenting (check all that apply): Patient Departure All imaging exams completed and their final reports reviewed: No Studies - Discharge Plan Condition: Stable Disposition: HOME Prescriptions: Ondansetron ODT TAB* [Zofran 4 MG Odt TAB*] 4 mg PO Q8H PRN #12 tab.odt PRN Reason: Nausea Oseltamivir CAP* [Tamiflu CAP*] 75 mg PO BID #10 cap Patient Education Materials: Influenza (ED) Referrals: [facility] [place] [facility] [Outside] Additional Instructions: Please follow up with a primary care physician, within the next 1-2 weeks if possible. Please seek medical attention for worse or new problems in the meantime. Tests today: Blood work - cbc, bmp - drawn, results back tomorrow Influenza A positive Please keep a close eye on your blood sugars while you are sick. Drink plenty of water. - Billing Disposition and Condition Condition: STABLE Disposition: Home
[2018-10-07 17:58] LABS: Influenza A Molecular POSITIVE (Negative)
[2018-10-08 14:38] LABS: Hematocrit 41 % (42-52); Hemoglobin 13.7 g/dl (14.0-18.0); Mean Corpuscular HGB Conc 34 g/dl (31-36); Mean Corpuscular Hemoglobin 32 pg (27-31); Mean Corpuscular Volume 94 fL (80-94); Mean Platelet Volume 8.5 fL (7.4-10.4); Platelet Count 145 10^3/ul (150-450); Red Blood Count 4.32 10^6/ul (4.00-5.40); Red Cell Distribution Width 13 % (10.5-15); White Blood Count 5.8 10^3/ul (3.5-10.8)
[2018-10-08 14:44] LABS: Calcium 9.3 mg/dL (8.6-10.3); Potassium 4.3 mmol/L (3.5-5.0)
[2018-10-08 14:49] LABS: BUN/Creatinine Ratio 18.1 (8-20); EGFR African American 68.2 (>60); EGFR Non-African American 56.4 (>60)
[2018-10-08 18:54] LABS: ABS Basophils 0 10^3/ul (0-0.2); ABS Eosinophils 0.1 10^3/ul (0-0.6); ABS Lymphocytes 1.5 10^3/ul (1.0-4.8); ABS Monocytes 0.7 10^3/ul (0-0.8); ABS Neutrophils 3.5 10^3/ul (1.5-7.7)
[2018-10-08 18:57] LABS: Lymphocytes % 27 %; Monocytes % 12 %; Neutrophil % 59 %
[2018-10-08 18:59] LABS: ABS Neutrophils 3.42 10^3/ul (1.5-7.7)
[2018-10-08 19:00] LABS: ABS Eosinophils 0.11 10^3/ul (0-0.6)
--- NOTE | 2018-10-10 19:41 | UC ---
- Progress Note Progress Note: CBC with dif reviewed - non concerning pathology slide: mild normocytic anemia, mild thrombocytopenia no change 10/10/18 Ned Course/Dx - Diagnoses Provider Diagnoses: Influenza A Discharge - Sign-Out/Discharge Documenting (check all that apply): Post-Discharge Follow Up All imaging exams completed and their final reports reviewed: No Studies - Discharge Plan Condition: Stable Disposition: HOME Prescriptions: Ondansetron ODT TAB* [Zofran 4 MG Odt TAB*] 4 mg PO Q8H PRN #12 tab.odt PRN Reason: Nausea Oseltamivir CAP* [Tamiflu CAP*] 75 mg PO BID #10 cap Patient Education Materials: Influenza (ED) Referrals: [facility] [place] [facility] [Outside] Additional Instructions: Please follow up with a primary care physician, within the next 1-2 weeks if possible. Please seek medical attention for worse or new problems in the meantime. Tests today: Blood work - cbc, bmp - drawn, results back tomorrow Influenza A positive Please keep a close eye on your blood sugars while you are sick. Drink plenty of water. - Billing Disposition and Condition Condition: STABLE Disposition: Home
== END 2018-10-07 18:50 | disposition home or self-care (01) ==
LOC: UCEAST 17:21
DX: J10.1 Influenza due to other identified influenza virus with other respiratory manifestations (principal)
CPT/HCPCS: 36415; 80048; 85025; 85060; 99212; G0463